=== PATIENT | female | born 1975 | race Hispanic/Latino ===

== ENCOUNTER 2018-08-16 12:41 | Emergency (ER) | payer SELFPAY ==
[~2018-08-16] VITALS: Ht 152.4 cm; Wt 64.0 kg
[~2018-08-16 12:41] MED LIST: BACTRIM DS1 TAB PO; CIPRO500 MG OR; CIPROFLOXACN500 MG PO; CORTISPORIN OTI10 M1 AD; FIORICET PO; LORTAB 10 PO; MOTRIN800 MG PO; NO; NO HOME MEDS; TAM75CAP PO; ZITHROMAX250 MG PO; ZYRTEC10 MG PO
[2018-08-16] MEDS ORDERED: TESSALON PERLE100 MG PO (14:12)
[2018-08-16] MEDS ORDERED: PROVENTIL HFA IN (14:12)
[2018-08-16] MEDS ORDERED: PREDNISONE20 MG PO (14:12)
[2018-08-16] MEDS ORDERED: AMOXICILLIN875 MG PO (14:12)
[2018-08-16 14:30] VITALS: BP 102/64
== END 2018-08-16 14:30 | disposition home or self-care (01) | DRG 153 ==
LOC: ED 12:41
DX: J06.9 Acute upper respiratory infection, unspecified (principal); J02.9 Acute pharyngitis, unspecified